=== PATIENT | male | born 1960 | race Hispanic/Latino ===

== ENCOUNTER 2018-02-22 09:54 | Outpatient (CLI) | payer OTHER ==
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
== END 2018-02-22 09:55 | disposition home or self-care (01) ==
LOC: SCSMRI 09:54
PROVIDERS: ATTEND Surgery
DX: M47.26 Other spondylosis with radiculopathy, lumbar region (principal); M47.812 Spondylosis without myelopathy or radiculopathy, cervical region; S32.040A Wedge compression fracture of fourth lumbar vertebra, initial encounter for closed fracture
CPT/HCPCS: 72050; 72120; 72158